=== PATIENT | female | born 1970 | race African-American/Black ===

== ENCOUNTER 2016-08-29 06:48 | Emergency (ER) | payer MEDICAID ==
[~2016-08-29] VITALS: Ht 180.3 cm; Wt 118.0 kg
[~2016-08-29 06:48] MED LIST: CIPR500T4 PO; HYDR-1530 PO; METH500T3 PO; TRAM50 PO
[2016-08-29 06:49] VITALS: BP 198/106; PULSE 120; RESP 20; TEMP 98; O2SAT 96
[2016-08-29 07:06] VITALS: BP 157/76; PULSE 104; RESP 20; O2SAT 97
[2016-08-29] MEDS ORDERED: ASPI81CH CHEW (07:14)
[2016-08-29 07:15] VITALS: BP 157/76; PULSE 100; RESP 20; TEMP 97.7; O2SAT 96
[2016-08-29 07:17] VITALS: BP 147/92; PULSE 99; RESP 20; O2SAT 99
[2016-08-29] MEDS ORDERED: LISI-519 PO (07:23)
--- NOTE | 2016-08-29 07:23 | PD ---
HPI Chief Complaint: Nosebleed Time Seen by Provider: 07:09 Travel History International Travel<30 days: No Contact w/Intl Traveler<30days: No Traveled to known affect area: No History of Present Illness HPI 46 years old female complains of nosebleed and elevated blood pressure. Patient states that she has intermittent elevated blood pressure for the past year. Patient has been seen by local physician and personal physician and was advised observation. Patient is not on any blood pressure medication. Patient take aspirin 81 mg daily. Patient also on medication for back pain including hydrocodone and Robaxin. Patient denies any headache. Patient denies any chest pain or shortness of breath. Patient denies abdominal pain. Patient denies any history of recurrent nosebleed. Patient states that she had spontaneous nosebleed this morning which lasted a few minutes and resolved completely. Patient states that she is not bleeding now. PFSH Past Medical History Diminished Hearing: No Gastrointestinal Disorders: Yes (UMBILICAL HERNIA) Hiatal Hernia: Yes Hypertension: Yes (PREHYPERTENSION,not diagnosed per patient) Musculoskeletal: Yes (STS HERNIATED DISK IN BACK. CHRONIC PAIN.) Immunizations Current: Yes Tetanus Vaccination: < 5 Years Influenza Vaccination: No ?: Not : 6 Para: 5 : 1 Tubal Ligation: Yes Past Surgical History Abdominal Surgery: Yes (umbilical hernia repair 11/29/11) Section: Yes (x1) Oral Surgery: Yes Family History Family Hypercholesterolemia: Yes Social History Alcohol Use: No Tobacco Use: No Substance Use: No Allergies-Medications (Allergen,Severity, Reaction): Coded Allergies: No Known Allergies (Verified , 08/29/16) Reported Meds & Prescriptions Reported Meds & Active Scripts Active Lisinopril 5 Mg Tab 5 Mg PO DAILY Ultram (Tramadol HCl) 50 Mg Tab 1-2 Tab PO Q4-6H PRN FOR PAIN Cipro (Ciprofloxacin HCl) 500 Mg Tab 500 Mg PO BID Reported Aspirin 81 Mg Chew 81 Mg CHEW DAILY Acetaminophen/Hydrocodone (Acetaminophen/Hydrocodone Bitart) 325 Mg/10 Mg Tab 325 Mg PO TID PRN Methocarbamol 500 Mg Tab 750 Mg PO TID UNKNOWN DOSE Review of Systems General / Constitutional: No: Fever Eyes: No: Visual changes HENT: Positive: Nosebleed, No: Headaches Cardiovascular: No: Chest Pain or Discomfort Respiratory: No: Shortness of Breath Gastrointestinal: No: Abdominal Pain Genitourinary: No: Dysuria Musculoskeletal: No: Pain Skin: No Rash Neurologic: No: Weakness Psychiatric: No: Depression Endocrine: No: Polydipsia Hematologic/Lymphatic: No: Easy Bruising Physical Exam Narrative GENERAL: Well-nourished, well-developed patient. SKIN: Warm and dry. HEAD: Normocephalic. EYES: No scleral icterus. No injection or drainage. Examination of the nose reveals no active bleeding. NECK: Supple, trachea midline. No JVD or lymphadenopathy. CARDIOVASCULAR: Regular rate and rhythm without murmurs, gallops, or rubs. RESPIRATORY: Breath sounds equal bilaterally. No accessory muscle use. GASTROINTESTINAL: Abdomen soft, non-tender, nondistended. MUSCULOSKELETAL: No cyanosis, or edema. BACK: Nontender without obvious deformity. No CVA tenderness. Neurologic exam normal Data Data Last Documented VS Vital Signs Date Time Temp Pulse Resp B/P Pulse Ox O2 Delivery O2 Flow Rate FiO2 08/29/16 07:34 93 20 151/92 98 Room Air 08/29/16 07:15 97.7 MDM Medical Decision Making Medical Screen Exam Complete: Yes Emergency Medical Condition: Yes Differential Diagnosis Differential diagnosis including epistaxis, new-onset hypertension. Narrative Course 46 years old female with transient nosebleed. Patient has transient elevated blood pressure with past year. Upon arrival patient's blood pressure was elevated however blood pressure improved when patient got to the room. Diagnosis Primary Impression: Epistaxis Additional Impression: Elevated blood pressure reading Patient Instructions: General Instructions Additional Instructions: No aspirin for 3 days. Lisinopril as directed. Follow-up with local physician for blood pressure check. Advised patient to put pressure to the nose rebleeds again. Follow-up with personal physician. Return if persistent nosebleed. Med/Other Pt SpecificInfo: Prescription(s) given Scripts Amlodipine 5 Mg Tab5 Mg PO DAILY #30 TAB Ref 0 Prov:Reji Butt MD 08/29/16 Disposition: 01 DISCHARGE HOME Condition: Stable Reji Butt MD Aug 29, 2016 07:23
[2016-08-29 07:34] VITALS: BP 151/92; PULSE 93; RESP 20; O2SAT 98
[2016-08-29] MEDS ORDERED: AMLO5TAB2 PO (08:03)
[2016-08-29 08:10] VITALS: BP 154/91
== END 2016-08-29 08:32 | disposition home or self-care (01) ==
LOC: NEPC 06:48
DX: R04.0 Epistaxis (principal)
CPT/HCPCS: 99283

== ENCOUNTER 2016-12-31 19:57 | Emergency (ER) | payer MEDICAID ==
[~2016-12-31] VITALS: Ht 180.3 cm; Wt 120.0 kg
[~2016-12-31 19:57] MED LIST changes: +AMLO5TAB2 PO; +ASPI81CH CHEW
[2016-12-31 20:00] VITALS: BP 145/89; PULSE 122; RESP 16; TEMP 98.7; O2SAT 99
--- NOTE | 2016-12-31 20:13 | PD ---
HPI . Right shoulder pain radiating to the substernal area today Chief Complaint: Chest Pain Time Seen by Provider: 20:13 Travel History International Travel<30 days: No Contact w/Intl Traveler<30days: No Traveled to known affect area: No History of Present Illness HPI 46-year-old female with hypertension and chronic back pain here with complaints of right shoulder pain that initially started as a 9/10 and radiated into substernal area and is ended up as 5/10 on a pain scale. She tells me the pain was very shooting in nature and cause her some shortness of breath. She also reports being diaphoretic at the time. This is the first time she has experienced any such pain and denies any prior cardiac history. She denies any recent injury. She is now free of all symptoms. She denies any nausea, vomiting, chest pain, shortness of breath, diaphoresis or abdominal pain. Her primary care provider is Dr. Blanton and she follows with Dr. Moreno for pain management. She is accompanied by her significant other. She does report taking a [address] trip last weekend. I offered pain medications and she declined. I also offered nausea medication and she declined. PFSH Past Medical History Diminished Hearing: No Gastrointestinal Disorders: Yes (UMBILICAL HERNIA) Hiatal Hernia: Yes Hypertension: Yes (PREHYPERTENSION,not diagnosed per patient) Musculoskeletal: Yes (STS HERNIATED DISK IN BACK. CHRONIC PAIN.) Immunizations Current: Yes ?: Not LMP: 12/12/16 : 6 Para: 5 : 1 Tubal Ligation: Yes Past Surgical History Abdominal Surgery: Yes (umbilical hernia repair 11/29/11) Section: Yes (x1) Oral Surgery: Yes Family History Family Hypercholesterolemia: Yes Social History Alcohol Use: No Tobacco Use: No Substance Use: No Allergies-Medications (Allergen,Severity, Reaction): Coded Allergies: No Known Allergies (Verified , 12/31/16) Reported Meds & Prescriptions Reported Meds & Active Scripts Active Reported Fluticasone Nasal [place] 50 Mcg/Act Naspr 50 Mcg EACH NARE BID 50 mcg/spray Hydrochlorothiazide 12.5 Mg Tab 12.5 Mg PO DAILY Hydrocodone-Acetaminophen 10-325 mg Tab 1 Tab PO TID PRN Methocarbamol 750 Mg Tab 750 Mg PO TID Amlodipine (Amlodipine Besylate) 10 Mg Tab 10 Mg PO DAILY Aspirin 81 Mg Chew 81 Mg CHEW DAILY Review of Systems General / Constitutional: No: Fever Eyes: No: Visual changes HENT: No: Headaches Cardiovascular: Positive: Chest Pain or Discomfort, Diaphoresis Respiratory: Positive: Shortness of Breath Gastrointestinal: No: Abdominal Pain Genitourinary: No: Dysuria Musculoskeletal: Positive: Pain (right shoulder ) Skin: No Rash Neurologic: No: Weakness Psychiatric: No: Depression Endocrine: No: Polydipsia Hematologic/Lymphatic: No: Easy Bruising Physical Exam Narrative GENERAL: AAO x 3, no acute distress, Well-nourished, well-developed patient. SKIN: Warm and dry. No visible rashes or bruising. HEAD: Normocephalic and atraumatic. EYES: No scleral icterus. No injection or drainage. EOM intact, PERRLA ENT: No nasal drainage noted. Mucous membranes pink. Airway patent. NECK: Supple, trachea midline. No JVD. CARDIOVASCULAR: tachycardic on exam. Chest pain reproducible with palpation to the sternum. RESPIRATORY: Breath sounds equal bilaterally. No accessory muscle use. No rhonchi or rales. GASTROINTESTINAL: Abdomen soft, non-tender, nondistended. Normoactive bowel sounds. EXTREMITIES: No cyanosis or edema. No pain to palpation bilateral upper extremities and LE. Range of motion is normal bilaterally UE/LE. BACK: Nontender without obvious deformity. No CVA tenderness. NEURO: CN II-12 intact, program review director strength normal b/l, UE and LE 5/5, no focal deficits PSYCH: AAO x 3, normal affect. Data Data Last Documented VS Vital Signs Date Time Temp Pulse Resp B/P Pulse Ox O2 Delivery O2 Flow Rate FiO2 12/31/16 20:30 135/85 12/31/16 20:30 100 Room Air 12/31/16 20:00 98.7 122 16 Orders Electrocardiogram (12/31/16 20:21) Basic Metabolic Panel (Bmp) (12/31/16 20:21) Ckmb (Isoenzyme) Profile (12/31/16 20:21) Complete Blood Count With Diff (12/31/16 20:21) Magnesium (Mg) (12/31/16 20:21) Prothrombin Time / Inr (Pt) (12/31/16 20:21) Act Partial Throm Time (Ptt) (12/31/16 20:21) Troponin I (12/31/16 20:21) Chest, Single Ap (12/31/16 20:21) Ecg Monitoring (12/31/16 20:21) Bilateral Bp Monitoring (12/31/16 20:21) Iv Access Insert/Monitor (12/31/16 20:21) Oximetry (12/31/16 20:21) Oxygen Administration (12/31/16 20:21) Sodium Chloride 0.9% Flush (Ns Flush) (12/31/16 20:30) Ct Pulmonary Angiogram (12/31/16 20:30) Ketorolac Inj (Toradol Inj) (12/31/16 20:45) CKMB (12/31/16 20:30) CKMB% (12/31/16 20:30) Iohexol 350 Inj (Omnipaque 350 Inj) (12/31/16 21:28) Sodium Chlor 0.9% 1000 Ml Inj (Ns 1000 M (12/31/16 21:30) Labs Laboratory Tests Test 12/31/16 20:30 White Blood Count 9.6 TH/MM3 Red Blood Count 4.27 MIL/MM3 Hemoglobin 12.6 GM/DL Hematocrit 37.2 % Mean Corpuscular Volume 87.1 FL Mean Corpuscular Hemoglobin 29.5 PG Mean Corpuscular Hemoglobin 33.9 % Concent Red Cell Distribution Width 14.6 % Platelet Count 246 TH/MM3 Mean Platelet Volume 9.7 FL Neutrophils (%) (Auto) 54.3 % Lymphocytes (%) (Auto) 31.8 % Monocytes (%) (Auto) 10.5 % Eosinophils (%) (Auto) 2.9 % Basophils (%) (Auto) 0.5 % Neutrophils # (Auto) 5.2 TH/MM3 Lymphocytes # (Auto) 3.1 TH/MM3 Monocytes # (Auto) 1.0 TH/MM3 Eosinophils # (Auto) 0.3 TH/MM3 Basophils # (Auto) 0.0 TH/MM3 CBC Comment DIFF FINAL Differential Comment Prothrombin Time 10.0 SEC Prothromb Time International 0.9 RATIO Ratio Activated Partial 27.6 SEC Thromboplast Time Sodium Level 138 MEQ/L Potassium Level 3.0 MEQ/L Chloride Level 102 MEQ/L Carbon Dioxide Level 26.9 MEQ/L Anion Gap 9 MEQ/L Blood Urea Nitrogen 9 MG/DL Creatinine 0.84 MG/DL Estimat Glomerular Filtration 88 ML/MIN Rate Random Glucose 98 MG/DL Calcium Level 9.0 MG/DL Magnesium Level 2.2 MG/DL Total Creatine Kinase 490 U/L Creatine Kinase MB 1.5 NG/ML Creatine Kinase MB % 0.3 % Troponin I LESS THAN 0.02 NG/ML MDM Medical Decision Making Medical Screen Exam Complete: Yes Emergency Medical Condition: Yes Medical Record Reviewed: Yes Differential Diagnosis Angina, ACS, pulmonary emboli, anxiety, costochondritis Narrative Course 46-year-old female here with complaints of sudden onset of right shoulder pain radiating into her substernal area. IV access was obtained, labs, chest x-ray, EKG and CT were ordered. Patient does carry risk factors for pulmonary emboli. EKG reviewed by Dr. Wilburn and reveals sinus tachycardia. CXR no acute disease. Patient c/o pain. Toradol given. CK mildly elevated, IV fluids provide. 2224: CT Angio Pulm: still pending: Another set of cardiac enzymes have been ordered: Case was discussed with Dr. Wilburn who will resume care of this patient. He will disposition. Condition: Stable She Omer Dec 31, 2016 20:13
[2016-12-31] MEDS ORDERED: HYDR-3583 PO (20:18)
[2016-12-31] MEDS ORDERED: METH750T PO (20:18)
[2016-12-31] MEDS ORDERED: HYDR12.56 PO (20:18)
[2016-12-31] MEDS ORDERED: FLUT50SP EACH NARE (20:18)
[2016-12-31] MEDS ORDERED: AMLO10TA2 PO (20:18)
[2016-12-31 20:30] VITALS: BP 135/85; O2SAT 100
[2016-12-31] MEDS ORDERED: SODIUM CHLORIDE 0.9% FLUSH 10 ML FLUSH IVF PRN (20:30)
[2016-12-31] MEDS ORDERED: KETOROLAC TROMETHAMINE 30 MG/ML (IVP) VIAL IV PUSH ONE (20:45)
[2016-12-31 20:50] LABS: AUTOMATED NEUTROPHIL # 5.2 TH/MM3 (1.8-7.7); BASOPHIL % 0.5 % (0.0-2.0); EOSINOPHIL # 0.3 TH/MM3 (0-0.4); EOSINOPHIL % 2.9 % (0.0-4.0); HEMATOCRIT 37.2 % (35.0-46.0); HEMO FLAGS DIFF FINAL; LYMPH % 31.8 % (9.0-44.0); LYMPHOCYTE # 3.1 TH/MM3 (1.0-4.8); MEAN CELL VOLUME 87.1 FL (80.0-100.0); MEAN CORPUSCULAR HEMOGLOBIN 29.5 PG (27.0-34.0); MEAN CORPUSCULAR HGB CONC 33.9 % (32.0-36.0); MONO % 10.5 % (0.0-8.0); NEUT % 54.3 % (16.0-70.0); PLATELET COUNT 246 TH/MM3 (150-450); RED BLOOD COUNT 4.27 MIL/MM3 (4.00-5.30); RED CELL DISTRIBUTION WIDTH 14.6 % (11.6-17.2); WHITE BLOOD COUNT 9.6 TH/MM3 (4.0-11.0)
[2016-12-31 21:10] LABS: APTT (PATIENT) 27.6 SEC (24.3-30.1); INTERNATIONAL NORMALIZED RATIO 0.9 RATIO
[2016-12-31 21:19] LABS: ANION GAP 9 MEQ/L (5-15); BICARBONATE 26.9 MEQ/L (21.0-32.0); BLOOD UREA NITROGEN 9 MG/DL (7-18); CHLORIDE 102 MEQ/L (98-107); GLOMERULAR FILTRATION RATE 88 ML/MIN (>89); MAGNESIUM 2.2 MG/DL (1.5-2.5); SODIUM (NA) 138 MEQ/L (136-145)
--- NOTE | 2016-12-31 21:21 | RADRPT ---
EXAM DATE/TIME: 12/31/2016 20:36 [facility] COMPARISON: No previous studies available for comparison. INDICATIONS : Chest pain and tightness. MEDICAL HISTORY : Hypertension. SURGICAL HISTORY : None. ENCOUNTER: Initial ACUITY: 1 day PAIN SCORE: 10/10 LOCATION: Bilateral chest FINDINGS: A single view of the chest demonstrates the lungs to be symmetrically aerated without evidence of mas s, infiltrate or effusion. The cardiomediastinal contours are unremarkable. Osseous structures are intact. CONCLUSION: No acute disease. Joe Chris MD on December 31, 2016 at 21:18 Board Certified Radiologist. This report was verified electronically.
[2016-12-31 21:23] LABS: CREATINE KINASE 490 U/L (26-192)
[2016-12-31] MEDS ORDERED: IOHEXOL 350 MG/ML 10 ML VIAL (for RAD DIAG) IV ONE (21:28)
[2016-12-31] MEDS ORDERED: SODIUM CHLOR 0.9% 1000 ML INJ 1,000 ML IV ONE (21:30)
[2016-12-31 21:35] LABS: CKMB 1.5 NG/ML (0.5-3.6)
--- NOTE | 2016-12-31 23:15 | PD ---
Physical Exam Date Seen by Provider: Dec 31, 2016 Time Seen by Provider: 23:12 Narrative The patient is a 46-year-old Ana female was initially evaluated by the mid-level provider. Please refer to the initial history, physical, diagnostic evaluation, and treatment modality plan. The patient was signed out [address] pulmonary angiogram results pending and second troponin pending for right sided shoulder pain and chest pain with mild tachycardia. Data Data Last Documented VS Vital Signs Date Time Temp Pulse Resp B/P Pulse Ox O2 Delivery O2 Flow Rate FiO2 12/31/16 20:30 135/85 12/31/16 20:30 100 Room Air 12/31/16 20:00 98.7 122 16 Orders Electrocardiogram (12/31/16 20:21) Basic Metabolic Panel (Bmp) (12/31/16 20:21) Ckmb (Isoenzyme) Profile (12/31/16 20:21) Complete Blood Count With Diff (12/31/16 20:21) Magnesium (Mg) (12/31/16 20:21) Prothrombin Time / Inr (Pt) (12/31/16 20:21) Act Partial Throm Time (Ptt) (12/31/16 20:21) Troponin I (12/31/16 20:21) Chest, Single Ap (12/31/16 20:21) Ecg Monitoring (12/31/16 20:21) Bilateral Bp Monitoring (12/31/16 20:21) Iv Access Insert/Monitor (12/31/16 20:21) Oximetry (12/31/16 20:21) Oxygen Administration (12/31/16 20:21) Sodium Chloride 0.9% Flush (Ns Flush) (12/31/16 20:30) Ct Pulmonary Angiogram (12/31/16 20:30) Ketorolac Inj (Toradol Inj) (12/31/16 20:45) CKMB (12/31/16 20:30) CKMB% (12/31/16 20:30) Iohexol 350 Inj (Omnipaque 350 Inj) (12/31/16 21:28) Sodium Chlor 0.9% 1000 Ml Inj (Ns 1000 M (12/31/16 21:30) Ckmb (Isoenzyme) Profile (12/31/16 23:30) Troponin I (12/31/16 23:30) Potassium Chloride (Kcl) (12/31/16 23:30) CKMB (12/31/16 23:30) CKMB% (12/31/16 23:30) Labs Laboratory Tests Test 12/31/16 12/31/16 20:30 23:30 White Blood Count 9.6 TH/MM3 Red Blood Count 4.27 MIL/MM3 Hemoglobin 12.6 GM/DL Hematocrit 37.2 % Mean Corpuscular Volume 87.1 FL Mean Corpuscular Hemoglobin 29.5 PG Mean Corpuscular Hemoglobin 33.9 % Concent Red Cell Distribution Width 14.6 % Platelet Count 246 TH/MM3 Mean Platelet Volume 9.7 FL Neutrophils (%) (Auto) 54.3 % Lymphocytes (%) (Auto) 31.8 % Monocytes (%) (Auto) 10.5 % Eosinophils (%) (Auto) 2.9 % Basophils (%) (Auto) 0.5 % Neutrophils # (Auto) 5.2 TH/MM3 Lymphocytes # (Auto) 3.1 TH/MM3 Monocytes # (Auto) 1.0 TH/MM3 Eosinophils # (Auto) 0.3 TH/MM3 Basophils # (Auto) 0.0 TH/MM3 CBC Comment DIFF FINAL Differential Comment Prothrombin Time 10.0 SEC Prothromb Time International 0.9 RATIO Ratio Activated Partial 27.6 SEC Thromboplast Time Sodium Level 138 MEQ/L Potassium Level 3.0 MEQ/L Chloride Level 102 MEQ/L Carbon Dioxide Level 26.9 MEQ/L Anion Gap 9 MEQ/L Blood Urea Nitrogen 9 MG/DL Creatinine 0.84 MG/DL Estimat Glomerular Filtration 88 ML/MIN Rate Random Glucose 98 MG/DL Calcium Level 9.0 MG/DL Magnesium Level 2.2 MG/DL Total Creatine Kinase 490 U/L 424 U/L Creatine Kinase MB 1.5 NG/ML 1.6 NG/ML Creatine Kinase MB % 0.3 % 0.4 % Troponin I LESS THAN 0.02 LESS THAN 0.02 NG/ML NG/ML [facility] Medical Record Reviewed: Yes Supervised Visit with DANIEL: Yes Interpretation(s) EKG reveals sinus tachycardia with a heart rate of 120. Nonspecific T-wave changes. Last Impressions CT Angiography 12/31/162029 Signed Impressions: Service Date/Time: Saturday, December 31, 2016 21:25 - CONCLUSION: 1. No evidence for pulmonary embolism. 2. No infiltrate or mass. Joe Mina MD Chest X-Ray 12/31/162020 Signed Impressions: Service Date/Time: Saturday, December 31, 2016 20:36 - CONCLUSION: No acute disease. Joe Chris MD Laboratory Tests Test 12/31/16 12/31/16 20:30 23:30 White Blood Count 9.6 TH/MM3 Red Blood Count 4.27 MIL/MM3 Hemoglobin 12.6 GM/DL Hematocrit 37.2 % Mean Corpuscular Volume 87.1 FL Mean Corpuscular Hemoglobin 29.5 PG Mean Corpuscular Hemoglobin 33.9 % Concent Red Cell Distribution Width 14.6 % Platelet Count 246 TH/MM3 Mean Platelet Volume 9.7 FL Neutrophils (%) (Auto) 54.3 % Lymphocytes (%) (Auto) 31.8 % Monocytes (%) (Auto) 10.5 % Eosinophils (%) (Auto) 2.9 % Basophils (%) (Auto) 0.5 % Neutrophils # (Auto) 5.2 TH/MM3 Lymphocytes # (Auto) 3.1 TH/MM3 Monocytes # (Auto) 1.0 TH/MM3 Eosinophils # (Auto) 0.3 TH/MM3 Basophils # (Auto) 0.0 TH/MM3 CBC Comment DIFF FINAL Differential Comment Prothrombin Time 10.0 SEC Prothromb Time International 0.9 RATIO Ratio Activated Partial 27.6 SEC Thromboplast Time Sodium Level 138 MEQ/L Potassium Level 3.0 MEQ/L Chloride Level 102 MEQ/L Carbon Dioxide Level 26.9 MEQ/L Anion Gap 9 MEQ/L Blood Urea Nitrogen 9 MG/DL Creatinine 0.84 MG/DL Estimat Glomerular Filtration 88 ML/MIN Rate Random Glucose 98 MG/DL Calcium Level 9.0 MG/DL Magnesium Level 2.2 MG/DL Total Creatine Kinase 490 U/L 424 U/L Creatine Kinase MB 1.5 NG/ML 1.6 NG/ML Creatine Kinase MB % 0.3 % 0.4 % Troponin I LESS THAN 0.02 LESS THAN 0.02 NG/ML NG/ML Differential Diagnosis Differential diagnoses includes pulmonary embolism, pleurisy, pneumonia, pleural effusion, acute coronary syndrome, radiculopathy, chronic pain, GERD, esophageal spasm. Narrative Course I, Dr. Wilburn, have reviewed the advance practice practitioner's documentation and am in agreement, met with the patient face to face, made the diagnosis, and the medical decision making was done by me. *My assessment and Findings: The patient is a 46-year-old female was initially evaluated by the mid-level provider. The patient complained of right shoulder pain radiating to the right chest with mild pleuritic chest pain, sharp, stabbing, no exacerbating or alleviating factors. The patient does have a history of hypertension, denies any history of pulmonary embolism, DVT, CAD, hyperlipidemia, or significant family medical history. EKG did reveal mild sinus tachycardia. Chest x-ray was unremarkable, therefore, CT pulmonary angiogram was ordered to rule out underlying pulmonary embolism. CT pulmonary injury gram was negative. Repeat troponin is less than 0.02. Patient does have a history of herniated disc and radiculopathy and is followed by a chronic pain neurologist, Dr. Moreno. Patient is stable for outpatient follow-up, she will be provided a copy of her CT results, x-ray results, and lab results at discharge. Diagnosis Primary Impression: Atypical chest pain Patient Instructions: General Instructions Additional Instruction: Continuing baby aspirin a day at home as previously directed. Medrol Dosepak as directed. Please provide the patient a copy of her CT results and lab results at discharge. Follow-up with your primary physician. Return if symptoms worsen or progress. Scripts Methylprednisolone Dosepak (Medrol Dosepak)4 Mg Dspk4 Mg PO DIRECTED #1 DSPK Ref 0 Per Pharmacist direction Prov:Felipe Wilburn MD 01/01/17 Disposition: 01 DISCHARGE HOME Condition: Stable Felipe Wilburn MD Dec 31, 2016 23:15
--- NOTE | 2016-12-31 23:16 | RADRPT ---
EXAM DATE/TIME: 12/31/2016 21:25 [facility] COMPARISON: No previous studies available for comparison. INDICATIONS : Chest pain; rule out pulmonary embolus. IV CONTRAST: 81 cc Omnipaque 350 (iohexol) IV RADIATION DOSE: 23.30 CTDIvol (mGy) MEDICAL HISTORY : Hypertension. umbilical hernia SURGICAL HISTORY : None. ENCOUNTER: Initial ACUITY: 1 day PAIN SCALE: 7/10 LOCATION: chest TECHNIQUE: Volumetric scanning of the chest was performed using a pulmonary embolism protocol MIP images were re constructed. Using automated exposure control and adjustment of the mA and/or kV according to patien t size, radiation dose was kept as low as reasonably achievable to obtain optimal diagnostic quality images. DICOM format image data is available electronically for review and comparison. FINDINGS: PULMONARY ARTERIES: No filling defects are seen in the pulmonary arteries through the segmental level. LUNGS: There is no consolidation or pneumothorax . No concerning pulmonary nodule is visualized. PLEURAE: There is no pleural thickening or pleural effusion. MEDIASTINUM: There is good visualization of the great vessels of the middle mediastinum. No evidence of mediastin al or hilar adenopathy/mass. MUSCULOSKELETAL: Within normal limits for patient age. MISCELLANEOUS: The visualized upper abdominal organs demonstrate no acute abnormality. CONCLUSION: 1. No evidence for pulmonary embolism. 2. No infiltrate or mass. Joe Mina MD on December 31, 2016 at 23:13 Board Certified Radiologist. This report was verified electronically.
[2016-12-31] MEDS ORDERED: POTASSIUM CHLORIDE 20 MEQ CONTROLLED RELEASE TAB PO ONE (23:30)
[2017-01-01 00:24] LABS: CREATINE KINASE 424 U/L (26-192)
[2017-01-01 00:36] LABS: CKMB 1.6 NG/ML (0.5-3.6)
[2017-01-01] MEDS ORDERED: MEDR4PAK PO (00:41)
[2017-01-01 00:47] VITALS: BP 148/90
--- NOTE | 2017-01-01 11:54 | EKG ---
Date Performed: 12/31/2016 Time Performed: 20:14:49 PTAGE: 46 years EKG: SINUS TACHYCARDIA NONSPECIFIC T-WAVE ABNORMALITY Since previous tracing, no significant roque nge noted ABNORMAL RHYTHM ECG PREVIOUS TRACING : 02/08/2005 10.32 DOCTOR: Manish Cameron Interpretating Date/Time 01/01/2017 11:53:57
== END 2017-01-01 01:09 | disposition home or self-care (01) ==
LOC: NEPC 19:57
DX: R07.89 Other chest pain (principal); M25.511 Pain in right shoulder; M54.9 Dorsalgia, unspecified; G89.29 Other chronic pain; I10 Essential (primary) hypertension; R00.0 Tachycardia, unspecified; Z79.899 Other long term (current) drug therapy; Z79.82 Long term (current) use of aspirin
CPT/HCPCS: 71010; 71275; 80048; 82550; 82552; 83735; 84484; 85025; 85610; 85730; 93005; 96361; 96374; 99285; J1885; J7030; Q9967